=== PATIENT | male | born 1980 | race Caucasian/White ===

== ENCOUNTER → 2016-09-17 | Outpatient (CLI) | payer OTHER ==
--- NOTE | 2016-09-17 08:50 | MR ---
EXAMINATION TYPE: MR lumbar spine wo/w con DATE OF EXAM: 09/17/2016 6:53 AM COMPARISON: 10/22/2014 HISTORY: spinal tumor TECHNIQUE: Multiplanar, multisequence images of the lumbar spine were acquired utilizing 17 mL intravenous Multi Austyn gadolinium contrast. L1-L2: Normal disc appearance without desiccation. No herniation, protrusion or disc bulging. No ca nal stenosis is present. Foramina are patent bilaterally. L2-L3: Normal disc appearance without desiccation. No herniation, protrusion or disc bulging. No ca nal stenosis is present. Foramina are patent bilaterally. L3-L4: Normal disc appearance without desiccation. No herniation, protrusion or disc bulging. No ca nal stenosis is present. Foramina are patent bilaterally. L4-L5: There is moderate disc desiccation noted. Posterior disc bulge with annular tear. Effacement o f the ventral thecal sac greatest paracentrally and to the right with a degree of right lateral reces s stenosis. Mild right foraminal encroachment. Overall appearance is stable. L5-S1: Moderate to severe disc desiccation noted. Right paracentral disc herniation effaces the theca l sac and results in right lateral recess stenosis unchanged from prior study. Mild lateral foraminal encroachment. Lumbar segments are intact. No paraspinal masses are identified. Conus medullaris has a normal appe arance. No enhancing mass identified. IMPRESSION: 1. Disc desiccation unchanged from prior examination. 2. Disc bulging and herniations as discussed.
== END | disposition home or self-care (01) ==
LOC: RADMRIMAIN 05:59
PROVIDERS: ATTEND Surgery Plastic and Reconstructive Surgery
DX: D48.0 Neoplasm of uncertain behavior of bone and articular cartilage (principal); M51.27 Other intervertebral disc displacement, lumbosacral region
CPT/HCPCS: 72158; A9577